=== PATIENT | male | born 1990 | race Caucasian/White ===

== ENCOUNTER → 2022-12-01 07:31 | Outpatient (CLI) | payer OTHER, SELFPAY ==
--- NOTE | 2022-12-01 08:15 | DI.MRI.S_ITS ---
PROCEDURE: MR HEAD/BRAIN WO/W CON INDICATIONS: Altered mental status, unspecified TECHNIQUE: Noncontrast axial T1 spin echo, axial T2 fast spin echo, sagittal and axial FLAIR, coronal T2 fast spin echo, axial gradient echo, axial diffusion and ADC through the brain. After the administration of contrast, axial and coronal and sagittal 3D VIBE or T1 spin echo with fat saturation through the brain. COMPARISON: None. FINDINGS: Image quality: Excellent. CSF Spaces: Basal cisterns are patent. No extra-axial fluid collections. Ventricles are normal in size and shape. Brain: No midline shift. No intracranial bleeds or masses. No abnormal intracranial enhancement. The brainstem appears normal. Diffusion-weighted images demonstrate no acute ischemic insults. No chronic ischemic insults. Normal intravascular flow voids are present. Skull and face: Calvarial marrow is normal in signal. Orbits appear normal. Sinuses: Sinuses and mastoids appear clear. IMPRESSION: 1. No acute intracranial abnormality. 2. No recent infarct. 3. No explanation for altered mental status. Dictated by: Jaun Bahena M.D. on 12/01/2022 at 10:04 Approved by: Jaun Bahena M.D. on 12/01/2022 at 10:05
== END ==
PROVIDERS: PCP Physician Assistant Medical; Referring Provider Physician Assistant Medical; Visit Provider Physician Assistant Medical
DX: R41.82 Altered mental status, unspecified (principal)
CPT/HCPCS: 70553

== ENCOUNTER → 2022-12-18 06:52 | Outpatient (CLI) | payer OTHER, SELFPAY ==
--- NOTE | 2022-12-18 | DI.ECHO.S_ITS ---
[facility] +---------+ : : [address] : : : : [id number] : : : : Phone: [phone]+ Echocardiogram Report + + :Name: JANESSA SWAN Study Date: 12/18/2022 Height: 70 in : :[facility] ReadingLocation: Weight: 251 lb : : Gender: Male BSA: 2.3 m2 : :: 1990 Age: 32 yrs BP: 136/100 mmHg: :Reason For Study: TACHYCARDIA : :Ordering Physician: CHERYL, : :BENNIE Performed By: Essence Phillips : :Referring: BENNIE LUNA : + + Interpretation Summary The left ventricle is normal in size and wall thickness. Left ventricular systolic function appears normal without focal wall motion abnormalities. The ejection fraction is estimated to be 55-60%. Diastolic parameters suggest probable normal left ventricular diastolic function and normal filling pressures. The right ventricle is normal in size and function. The left atrial size is normal. Right atrial size is normal. The aortic valve is bicuspid. There is mild aortic stenosis. The peak aortic velocity is 2.4 m/sec. The calculated aortic valve area is 1.5 cm2. There is no other significant valvular heart disease. The ascending aorta is mild-moderately enlarged. Procedure: A two-dimensional transthoracic echocardiogram with color flow and Doppler was performed. The study quality was technically adequate. There is no prior echocardiogram noted for this patient. The patient was in sinus rhythm with heart rates between 71-86 bpm during the exam. Left Ventricle: The left ventricle is normal in size and wall thickness. Left ventricular systolic function appears normal without focal wall motion abnormalities. The ejection fraction is estimated to be 55-60%. Diastolic parameters suggest probable normal left ventricular diastolic function and normal filling pressures. Right Ventricle: The right ventricle is normal in size and function. Atria: The left atrial size is normal. Right atrial size is normal. There is no Doppler evidence for an interatrial shunt. Mitral Valve: The mitral valve is normal in structure and function. There is trace mitral regurgitation. Aortic Valve: The aortic valve is bicuspid. There is mild aortic stenosis. The peak aortic velocity is 2.4 m/sec. The aortic valve mean gradient is 13 mmHg. The calculated aortic valve area is 1.5 cm2. No aortic regurgitation is present. Tricuspid Valve: The tricuspid valve is normal in structure and function. There is trace tricuspid regurgitation. Pulmonic Valve: The pulmonic valve is not well visualized. There is no pulmonic valvular regurgitation. There is no other significant valvular heart disease. Great Vessels: The aortic root is normal size. The ascending aorta is mild- moderately enlarged. The IVC is of normal diameter and collapses greater than 50% with a sniff. This suggests a low right atrial pressure of 3 mm Hg. Pericardium/ Pleura There is no pericardial effusion. There is no pleural effusion. MMode/2D Measurements & Calculations LVIDd: 4.8 cm LVOT diam: 2.3 cm LVIDs: 3.0 cm Ao root diam: 3.5 cm FS: 36.8 % asc Aorta Diam: 4.2 cm EPSS: 0.65 cm Ao Arch Diam (Prox Trans): 3.2 cm IVSd: 0.87 cm LVPWd: 0.90 cm LV saucedo. diameter/BSA (cm/m^2): 2.1 LV sys. diameter/BSA (cm/m^2): 1.3 LA A2 area: 17.9 cm2 RA long axis: 4.0 cm LA A4 area: 12.6 cm2 RA area: 10.6 cm2 LA length (vol): 4.8 cm RA vol: 24.2 ml LA vol: 39.6 ml RA : 10.5 ml/m2 LA vol index: 17.2 ml/m2 IVC diam: 1.5 cm RVD1 (basal): 3.4 cm TAPSE: 1.7 cm Doppler Measurements & Calculations Ao V2 max: 238.1 cm/sec LVOT Max Osmar: 87.1 cm/sec Ao V2 mean: 165.4 cm/sec LV V1 max P.0 mmHg Ao max P.3 mmHg LV V1 VTI: 18.6 cm Ao mean P.3 mmHg KB(I,D): 1.7 cm2 Ao V2 VTI: 46.2 cm KB(V,D): 1.5 cm2 sev ratio: 0.40 KB indexed to BSA (cm^2/m^2): 0.72 MV E max osmar: 61.5 cm/sec PA V2 max: 93.8 cm/sec MV A max osmar: 68.5 cm/sec PA V2 mean: 60.1 cm/sec MV E/A: 0.90 PA mean P.8 mmHg Med Peak E' Osmar: 8.2 cm/sec PA pr(Accel): 32.8 mmHg E/E' med: 7.5 Lat Peak E' Osmar: 9.3 cm/sec E/E' lat: 6.6 E/e' average: 7.0 MV dec time: 0.32 sec SV(LVOT): 77.0 ml Reading Physician:02:14 PM
== END ==
PROVIDERS: PCP Physician Assistant Medical; Referring Provider Physician Assistant Medical; Visit Provider Physician Assistant Medical
DX: R41.82 Altered mental status, unspecified (principal); R00.0 Tachycardia, unspecified; I10 Essential (primary) hypertension; I35.0 Nonrheumatic aortic (valve) stenosis; I51.7 Cardiomegaly; Q23.1 Congenital insufficiency of aortic valve
CPT/HCPCS: 93306